=== PATIENT | male | born 1960 | race Caucasian/White ===

== ENCOUNTER 2022-03-30 15:08 | Emergency (ER) | payer MEDICARE, MEDICAID, SELFPAY ==
[2022-03-30 15:13] VITALS: BP 104/69; PULSE 62; RESP 14; TEMP 36.8; O2SAT 96; BMI 24.1
--- NOTE | 2022-03-30 15:13 | ECG_ITS ---
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 Measurements Intervals [place] Rate: 58 P: 73 [place]: 168 QRS: 71 QRSD: 93 T: 65 QT: 443 QTc: 436 Interpretive Statements SINUS BRADYCARDIA No previous ECG available for comparison Electronically Signed On 03-31-2022 12:49:26 CDT by Tenisha Duran M.D. [email or web address]
[2022-03-30] MEDS: sodium chloride 0.9% 1,000 ML 999 ML IV (15:30)
[2022-03-30 15:37] LABS: Basophils % 0.1 %; Eosinophils # 0.2 10^3/uL (0.0-0.8); Eosinophils % 2.9 %; Hematocrit 39.7 % (42.0-52.0); Lymphocytes # 1.7 10^3/uL (0.8-4.8); Lymphocytes % 23.3 %; Mean Corpuscular HGB Conc 32.7 g/dL (30.0-36.0); Mean Corpuscular Hemoglobin 30.6 pg (28.0-34.0); Mean Corpuscular Volume 93.4 fl (80-94); Mean Platelet Volume 9.8 fL (7.4-10.4); Monocytes # 0.8 10^3/uL (0.2-0.9); Neutrophils # 4.46 10^3/uL (1.8-7.7); Neutrophils % 62.3 %; Nucleated Red Blood Cells % 0 %; Platelet Count 259 10^3/cmm (130-400); Red Blood Count 4.25 10^6/uL (4.1-5.3); Red Cell Distribution Width 13.1 % (12.1-15.1); White Blood Count 7.2 10^3/uL (4.0-10.0)
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
[2022-03-30 16:08] LABS: Alanine Aminotransferase 28 U/L (0-41); Albumin Level 3.8 g/dL (3.5-5.2); Alkaline Phosphatase 80 IU/L (40-130); Anion Gap 9.8 (5-19); Aspartate Amino Transferase 22 U/L (0-40); Blood Urea Nitrogen 20 mg/dL (8-23); Calcium 9.5 mg/dL (8.5-10.5); Carbon Dioxide 30 mmol/L (22-29); Chloride 104 mmol/L (98-107); Globulin 2.7 g/dL (1.3-4.6); Glomerular Filtration Rate 98.3 mL/min (90-130); Glucose 119 mg/dL (65-115); Osmolality Calculated 294 mOsm/kg (285-295); Potassium 3.8 mmol/L (3.5-5.1); Sodium 140 mmol/L (136-145); Total Bilirubin 0.2 mg/dL (0.15-1.2); Total Protein 6.5 g/dL (6.6-8.7)
[2022-03-30 16:09] VITALS: BP 106/73; BP 115/82; BP 119/80; PULSE 51; PULSE 57; PULSE 59
[2022-03-30 16:38] VITALS: BP 119/80; PULSE 59; RESP 16; O2SAT 100
[2022-03-30 17:56] VITALS: BP 103/71; PULSE 80; RESP 18; O2SAT 95
== END 2022-03-30 17:59 | disposition home or self-care (01) ==
PROVIDERS: Emergency Provider Family Medicine; PCP Family Medicine
DX: T67.5XXA Heat exhaustion, unspecified, initial encounter (principal); X30.XXXA Exposure to excessive natural heat, initial encounter; Y93.55 Activity, bike riding
CPT/HCPCS: 80053; 85025; 93005; 96360; 99284; J7030